=== PATIENT | male | born 1955 | race Caucasian/White ===

== ENCOUNTER 2017-12-12 06:42 | Day surgery (SDC) | payer BC ==
[~2017-12-12] VITALS: Ht 177.8 cm; Wt 100.8 kg
[~2017-12-12 06:42] MED LIST: BENICAR20 MG PO; CLARITIN,ALAVAR10 MG PO; DAILY VALUE1 EACH PO; GLUCOPHAGE500 MG PO; LIPITOR20 MG PO
[2017-12-12 07:51] VITALS: BP 120/71
[2017-12-12] MEDS ORDERED: COLACE100 MG PO (11:34)
[2017-12-12] MEDS ORDERED: PERCOCET 5/31 TABLET PO (11:34)
[2017-12-12 12:22] VITALS: BP 114/69
[2017-12-12 13:22] VITALS: BP 106/59
[2017-12-12 14:57] VITALS: BP 127/68
== END 2017-12-12 15:05 | disposition home or self-care (01) ==
LOC: SDC 06:42
PROVIDERS: Surgery
PROC: 0YUA4JZ Supplement Bilateral Inguinal Region with Synthetic Substitute, Percutaneous Endoscopic Approach (ICD-10-PCS; principal; 2017-12-12)
DX: K40.20 Bilateral inguinal hernia, without obstruction or gangrene, not specified as recurrent (principal); E11.9 Type 2 diabetes mellitus without complications; Z79.84 Long term (current) use of oral hypoglycemic drugs; E78.5 Hyperlipidemia, unspecified; I10 Essential (primary) hypertension
CPT/HCPCS: 82948; C1727; C1781; J0690; J1100; J1170; J2001; J2250; J2405; J2710; J2795; J3010; J3475